=== PATIENT | male | born 1990 | race Hispanic/Latino ===

== ENCOUNTER 2022-07-28 20:59 | Inpatient (IN) | payer OTHER ==
[~2022-07-28] VITALS: Ht 182.9 cm; Wt 105.2 kg
[2022-07-28] MEDS ORDERED: CHARCOAL ACTIVATED LIQUID 25GM/120ML BTL PO ONE (21:05)
[2022-07-28 21:28] LABS: BASO % 0.2 % (0.0-1.0); EOS % 0.5 % (0.0-3.0); HEMOGLOBIN 14.6 g/dl (13.5-17.5); LYMPH # 1.1 10^3/uL (1.5-5.0); MEAN CORPUSCULAR HEMOGLOBIN 31.8 pg (27.0-33.0); MEAN CORPUSCULAR HGB CONC 34.8 g/dl (32.0-36.5); MEAN CORPUSCULAR VOLUME 91.5 fl (80.0-96.0); MONO # 0.5 10^3/uL (0.0-0.8); MONO % 9.4 % (2.0-8.0); NEUTROPHILS % 70.5 % (36.0-66.0); PLATELET COUNT, AUTOMATED 232 10^3/uL (150-450); RED BLOOD COUNT 4.59 10^6/uL (4.30-6.10); WHITE BLOOD COUNT 5.6 10^3/uL (4.0-10.0)
[2022-07-28] MEDS ORDERED: NS 1,000 ML IV ONE ×2 (21:35→22:00)
[2022-07-28 21:53] LABS: ETHYL ALCOHOL (ETHANOL) 0.013 % (0.000-0.010)
[2022-07-28 21:54] LABS: SALICYLATE LEVEL < 3.0 MG/DL (<30)
[2022-07-28 21:55] LABS: ACETAMINOPHEN LEVEL < 2.0 UG/ML (10.0-20.0); ALBUMIN 3.9 G/DL (3.2-5.2); ALKALINE PHOSPHATASE 66 U/L (46-116); ALT/SGPT 19 U/L (7.0-40); AST/SGOT 21 U/L (<34); BILIRUBIN,DIRECT 0.2 MG/DL (<0.4); BILIRUBIN,TOTAL 0.7 MG/DL (0.3-1.2); BLOOD UREA NITROGEN 14 MG/DL (9-23); CALCIUM LEVEL 8.6 MG/DL (8.5-10.1); CARBON DIOXIDE LEVEL 28 MMOL/L (20-31); CHLORIDE LEVEL 106 MMOL/L (98-107); CPK CREATINE PHOSPHOKINASE 142 U/L (46-171); CREATININE FOR GFR 1.04 MG/DL (0.70-1.30); GLOMERULAR FILTRATION RATE > 60.0 (>60); GLUCOSE, FASTING 120 MG/DL (60-100); POTASSIUM SERUM 4.3 MMOL/L (3.5-5.1); SODIUM LEVEL 141 MMOL/L (136-145); TOTAL PROTEIN 6.8 G/DL (5.7-8.2)
[2022-07-28 21:57] LABS: THYROID STIMULATING HORMONE 1.525 uIU/ML (0.55-4.78)
[2022-07-28 22:01] LABS: RSV AMPLIFICATION NEGATIVE (NEGATIVE)
[2022-07-28 22:21] LABS: MAGNESIUM LEVEL 1.9 MG/DL (1.8-2.4)
[2022-07-28] MEDS: NOREPINEPHRINE 4MG IN D5 250ML 4 MG in IV 1 EA IV SCH ×4 (22:48)
[2022-07-28] MEDS ORDERED: NS 1,000 ML IV SCH ×2 (23:10→23:45)
[2022-07-28] MEDS ORDERED: ALBUTEROL SULFATE 2.5MG/0.5ML INH NEB SOLN NEB PRN (23:45)
[2022-07-29] VITALS (30 sets, daily range): BP systolic 86–112; BP diastolic 46–64; O2SAT 95–97
[2022-07-29 00:31] LABS: AMPHETAMINES LEVEL URINE NEGATIVE (NEGATIVE); BARBITURATES URINE NEGATIVE (NEGATIVE); BENZODIAZEPINES URINE NEGATIVE (NEGATIVE); CANNABINOIDS URINE NEGATIVE (NEGATIVE); COCAINE METABOLITE URINE NEGATIVE (NEGATIVE); METHADONE URINE NEGATIVE (NEGATIVE); OPIATES URINE NEGATIVE (NEGATIVE); PHENCYCLIDINE URINE NEGATIVE (NEGATIVE)
[2022-07-29] MEDS: NOREPINEPHRINE 4MG IN D5 250ML 4 MG in IV 1 EA IV SCH ×4 (00:47→09:20)
[2022-07-29 04:59] LABS: ALBUMIN 3.3 G/DL (3.2-5.2); ALKALINE PHOSPHATASE 58 U/L (46-116); ALT/SGPT 27 U/L (7.0-40); AST/SGOT 16 U/L (<34); BILIRUBIN,TOTAL 0.8 MG/DL (0.3-1.2); BLOOD UREA NITROGEN 11 MG/DL (9-23); CALCIUM LEVEL 8.2 MG/DL (8.5-10.1); CARBON DIOXIDE LEVEL 29 MMOL/L (20-31); CHLORIDE LEVEL 109 MMOL/L (98-107); CREATININE FOR GFR 0.98 MG/DL (0.70-1.30); GLOMERULAR FILTRATION RATE > 60.0 (>60); GLUCOSE, FASTING 112 MG/DL (60-100); MAGNESIUM LEVEL 1.8 MG/DL (1.8-2.4); PHOSPHORUS LEVEL 4.4 MG/DL (2.5-4.9); POTASSIUM SERUM 4.2 MMOL/L (3.5-5.1); SODIUM LEVEL 143 MMOL/L (136-145); TOTAL PROTEIN 5.9 G/DL (5.7-8.2)
[2022-07-29] MEDS: PANTOPRAZOLE 40MG VIAL IV SCH (08:03)
[2022-07-29] MEDS: HEPARIN SOD (PORCINE) 5000UNITS/ML 1ML VIAL/SYRINGE SC SCH ×2 (09:06→15:29)
[2022-07-29] MEDS ORDERED: DULO60CA35 PO (10:26)
[2022-07-29] MEDS ORDERED: TRAZ-257 PO (10:26)
[2022-07-29] MEDS ORDERED: PRAZ5CAP22 PO (10:26)
[2022-07-29] MEDS ORDERED: BUSP10TA PO (10:26)
[2022-07-29] MEDS ORDERED: HYDR50TA70 PO ×2 (10:26)
[2022-07-29] MEDS ORDERED: CLON0.2T PO (10:26)
[2022-07-29] MEDS ORDERED: NS 1,000 ML IV SCH (10:35)
[2022-07-29] MEDS ORDERED: LR 1,000 ML IV SCH (15:05)
[2022-07-29] MEDS ORDERED: NEOSPORIN OINT 0.9 GM PKT TOP ONE (16:15)
[2022-07-30] VITALS (25 sets, daily range): BP systolic 92–135; BP diastolic 53–64; O2SAT 88–99
[2022-07-30] MEDS: PANTOPRAZOLE 40MG VIAL IV SCH (09:13)
[2022-07-30] MEDS: ENOXAPARIN 40MG/0.4ML SYRINGE (J1650 PER 10MG) SC SCH (09:13)
[2022-07-30] MEDS: LR 1,000 ML IV SCH (12:30)
[2022-07-31] VITALS (12 sets, daily range): BP systolic 129–146; BP diastolic 63–79; O2SAT 94–97
[2022-07-31] MEDS: LR 1,000 ML IV SCH ×2 (01:00→12:15)
[2022-07-31 08:32] LABS: HEMATOCRIT 35.3 % (42.0-52.0); HEMOGLOBIN 12.5 g/dl (13.5-17.5); MEAN CORPUSCULAR HEMOGLOBIN 32.4 pg (27.0-33.0); MEAN CORPUSCULAR HGB CONC 35.4 g/dl (32.0-36.5); MEAN CORPUSCULAR VOLUME 91.5 fl (80.0-96.0); PLATELET COUNT, AUTOMATED 138 10^3/uL (150-450); RED BLOOD COUNT 3.86 10^6/uL (4.30-6.10); WHITE BLOOD COUNT 5.1 10^3/uL (4.0-10.0)
[2022-07-31] MEDS: PANTOPRAZOLE 40MG VIAL IV SCH (08:40)
[2022-07-31 09:16] LABS: BLOOD UREA NITROGEN 12 MG/DL (9-23); CALCIUM LEVEL 7.9 MG/DL (8.5-10.1); CARBON DIOXIDE LEVEL 26 MMOL/L (20-31); CHLORIDE LEVEL 107 MMOL/L (98-107); GLOMERULAR FILTRATION RATE > 60.0 (>60); GLUCOSE, FASTING 100 MG/DL (60-100); POTASSIUM SERUM 3.7 MMOL/L (3.5-5.1); SODIUM LEVEL 141 MMOL/L (136-145)
[2022-07-31] MEDS: ENOXAPARIN 40MG/0.4ML SYRINGE (J1650 PER 10MG) SC SCH (11:51)
== END 2022-07-31 14:31 | DRG 917 ==
LOC: EDBD 20:59 → M ED 20:59 → M ED INP 23:18 → M ICU 07-29 00:33 → M PCU 07-29 17:08
PROVIDERS: ADMIT Internal Medicine; ATTEND Internal Medicine
DX: T43.212A Poisoning by selective serotonin and norepinephrine reuptake inhibitors, intentional self-harm, initial encounter (principal); G92.9 Unspecified toxic encephalopathy; R45.851 Suicidal ideations; R57.9 Shock, unspecified; F41.9 Anxiety disorder, unspecified; F43.10 Post-traumatic stress disorder, unspecified; T43.592A Poisoning by other antipsychotics and neuroleptics, intentional self-harm, initial encounter; I95.9 Hypotension, unspecified; R94.31 Abnormal electrocardiogram [ECG] [EKG]; F32.A Depression, unspecified; Z79.899 Other long term (current) drug therapy; Z63.5 Disruption of family by separation and divorce

== ENCOUNTER 2022-07-31 12:27 | Inpatient (IN) | payer OTHER ==
[~2022-07-31] VITALS: Ht 182.9 cm; Wt 104.1 kg
[~2022-07-31 12:27] MED LIST: BUSP10TA PO; CLON0.2T PO; DULO60CA35 PO; HYDR50TA70 PO; PRAZ5CAP22 PO; TRAZ-257 PO
[2022-07-31] MEDS ORDERED: MOM 30ML SUSPENSION UDC PO PRN (13:50)
[2022-07-31] MEDS ORDERED: ALBUTEROL 90 MCG/ACT 8GM HFA INHALER INH PRN (13:50)
[2022-07-31] MEDS ORDERED: MAALOX 30 ML SUSP *UDC PO PRN (13:50)
[2022-07-31] MEDS ORDERED: HOME MED LIST COMPLETE! XX SCH (14:55)
[2022-07-31 14:56] VITALS: BP 136/79
[2022-07-31] MEDS: DULoxetine 20MG CAP (CYMBALTA) PO SCH (17:40)
[2022-07-31] MEDS ORDERED: PRAZOSIN 1 MG CAP PO SCH (21:00)
[2022-08-01 06:16] VITALS: BP 146/98
[2022-08-01 09:16] VITALS: BP 146/98
[2022-08-01] MEDS: PANTOPRAZOLE 40MG TAB (PROTONIX) PO SCH (09:20)
[2022-08-01] MEDS: DULoxetine 20MG CAP (CYMBALTA) PO SCH (09:20)
[2022-08-01] MEDS: busPIRone 10 MG TAB PO SCH ×2 (12:20→22:39)
[2022-08-01] MEDS ORDERED: chlorproMAZINE INJ 50MG/2ML AMP IM STA (16:24)
[2022-08-01 16:30] VITALS: BP 154/75
[2022-08-01 16:45] VITALS: BP 148/78
[2022-08-01 17:00] VITALS: BP 160/79
[2022-08-01 18:54] VITALS: BP 142/82
[2022-08-01] MEDS: PRAZOSIN 1 MG CAP PO SCH (22:39)
[2022-08-01] MEDS: QUEtiapine FUMARATE 25 MG TAB PO SCH (22:39)
[2022-08-02 06:35] VITALS: BP 148/83
[2022-08-02] MEDS: DULoxetine 30MG CAPSULE (CYMBALTA) PO SCH (08:38)
[2022-08-02] MEDS: busPIRone 10 MG TAB PO SCH ×3 (08:38→21:53)
[2022-08-02] MEDS: PANTOPRAZOLE 40MG TAB (PROTONIX) PO SCH (08:38)
[2022-08-02] MEDS: cloNIDine 0.2 MG TAB PO SCH ×2 (14:34→21:53)
[2022-08-02 17:21] VITALS: BP 123/76
[2022-08-02] MEDS: QUEtiapine FUMARATE 25 MG TAB PO SCH (21:53)
[2022-08-02] MEDS: PRAZOSIN 1 MG CAP PO SCH (21:54)
[2022-08-03 06:54] VITALS: BP 107/62
[2022-08-03 08:29] VITALS: BP 138/76
[2022-08-03] MEDS: cloNIDine 0.2 MG TAB PO SCH ×2 (08:31→21:46)
[2022-08-03] MEDS: DULoxetine 30MG CAPSULE (CYMBALTA) PO SCH (08:31)
[2022-08-03] MEDS: PANTOPRAZOLE 40MG TAB (PROTONIX) PO SCH (08:32)
[2022-08-03] MEDS: busPIRone 10 MG TAB PO SCH ×3 (08:32→21:46)
[2022-08-03 15:50] VITALS: BP 148/86
[2022-08-03] MEDS: QUEtiapine FUMARATE 25 MG TAB PO SCH (21:46)
[2022-08-03] MEDS: PRAZOSIN 1 MG CAP PO SCH (21:47)
[2022-08-04 06:56] VITALS: BP 123/67
[2022-08-04] MEDS: PANTOPRAZOLE 40MG TAB (PROTONIX) PO SCH (08:11)
[2022-08-04] MEDS: DULoxetine 30MG CAPSULE (CYMBALTA) PO SCH (08:12)
[2022-08-04] MEDS: cloNIDine 0.2 MG TAB PO SCH ×2 (08:12→19:57)
[2022-08-04] MEDS: busPIRone 10 MG TAB PO SCH ×3 (08:12→19:57)
[2022-08-04 17:40] VITALS: BP 126/70
[2022-08-04] MEDS: PRAZOSIN 1 MG CAP PO SCH (19:56)
[2022-08-04] MEDS: QUEtiapine FUMARATE 25 MG TAB PO SCH (19:57)
[2022-08-05 06:03] VITALS: BP 114/69
[2022-08-05 09:56] VITALS: BP 138/88
[2022-08-05] MEDS: DULoxetine 30MG CAPSULE (CYMBALTA) PO SCH (09:56)
[2022-08-05] MEDS: busPIRone 10 MG TAB PO SCH ×3 (09:56→20:02)
[2022-08-05] MEDS: cloNIDine 0.2 MG TAB PO SCH ×2 (09:57→20:03)
[2022-08-05] MEDS: PANTOPRAZOLE 40MG TAB (PROTONIX) PO SCH (09:57)
[2022-08-05 18:00] VITALS: BP 135/82
[2022-08-05] MEDS: QUEtiapine FUMARATE 25 MG TAB PO SCH (20:02)
[2022-08-05] MEDS: PRAZOSIN 1 MG CAP PO SCH (20:03)
[2022-08-06 06:40] VITALS: BP 145/76
[2022-08-06 07:40] VITALS: BP 150/90
[2022-08-06] MEDS: DULoxetine 30MG CAPSULE (CYMBALTA) PO SCH (07:52)
[2022-08-06] MEDS: busPIRone 10 MG TAB PO SCH ×3 (07:52→20:37)
[2022-08-06] MEDS: PANTOPRAZOLE 40MG TAB (PROTONIX) PO SCH (07:53)
[2022-08-06] MEDS: cloNIDine 0.2 MG TAB PO SCH ×2 (07:53→20:37)
[2022-08-06 17:35] VITALS: BP 143/85
[2022-08-06] MEDS: QUEtiapine FUMARATE 25 MG TAB PO SCH (20:37)
[2022-08-06] MEDS: PRAZOSIN 1 MG CAP PO SCH (20:38)
[2022-08-07 06:58] VITALS: BP 142/66
[2022-08-07] MEDS: DULoxetine 30MG CAPSULE (CYMBALTA) PO SCH (07:55)
[2022-08-07] MEDS: PANTOPRAZOLE 40MG TAB (PROTONIX) PO SCH (07:56)
[2022-08-07] MEDS: cloNIDine 0.2 MG TAB PO SCH ×2 (07:56→20:14)
[2022-08-07] MEDS: busPIRone 10 MG TAB PO SCH ×3 (07:57→20:14)
[2022-08-07 16:15] VITALS: BP 145/84
[2022-08-07] MEDS: PRAZOSIN 1 MG CAP PO SCH (20:14)
[2022-08-07] MEDS: QUEtiapine FUMARATE 25 MG TAB PO SCH (20:14)
[2022-08-08 07:03] VITALS: BP 129/68
[2022-08-08] MEDS: busPIRone 10 MG TAB PO SCH ×3 (08:33→20:44)
[2022-08-08] MEDS: cloNIDine 0.2 MG TAB PO SCH ×2 (08:33→20:44)
[2022-08-08] MEDS: DULoxetine 30MG CAPSULE (CYMBALTA) PO SCH (08:34)
[2022-08-08] MEDS: PANTOPRAZOLE 40MG TAB (PROTONIX) PO SCH (08:34)
[2022-08-08 16:29] VITALS: BP 146/80
[2022-08-08] MEDS: QUEtiapine FUMARATE 25 MG TAB PO SCH (20:44)
[2022-08-08] MEDS: PRAZOSIN 1 MG CAP PO SCH (20:44)
[2022-08-09 06:25] VITALS: BP 147/82
[2022-08-09] MEDS: cloNIDine 0.2 MG TAB PO SCH ×2 (08:02→20:54)
[2022-08-09] MEDS: busPIRone 10 MG TAB PO SCH ×3 (08:02→20:54)
[2022-08-09] MEDS: PANTOPRAZOLE 40MG TAB (PROTONIX) PO SCH (08:03)
[2022-08-09] MEDS: DULoxetine 30MG CAPSULE (CYMBALTA) PO SCH (08:03)
[2022-08-09] MEDS: OLANZapine ORAL DISINTEGRATING TAB 5MG PO PRN (11:20)
[2022-08-09 16:14] VITALS: BP 135/70
[2022-08-09] MEDS: QUEtiapine FUMARATE 25 MG TAB PO SCH (20:54)
[2022-08-09] MEDS: PRAZOSIN 1 MG CAP PO SCH (20:54)
[2022-08-10 06:10] VITALS: BP 137/78
[2022-08-10 08:18] VITALS: BP 142/78
[2022-08-10] MEDS: DULoxetine 30MG CAPSULE (CYMBALTA) PO SCH (08:18)
[2022-08-10] MEDS: busPIRone 10 MG TAB PO SCH ×3 (08:19→20:12)
[2022-08-10] MEDS: PANTOPRAZOLE 40MG TAB (PROTONIX) PO SCH (08:19)
[2022-08-10] MEDS: cloNIDine 0.2 MG TAB PO SCH ×2 (08:19→20:12)
[2022-08-10] MEDS: OLANZapine ORAL DISINTEGRATING TAB 5MG PO PRN (17:54)
[2022-08-10 17:58] VITALS: BP 146/84
[2022-08-10] MEDS: QUEtiapine FUMARATE 25 MG TAB PO SCH (20:12)
[2022-08-10] MEDS: PRAZOSIN 1 MG CAP PO SCH (20:12)
[2022-08-11 06:42] VITALS: BP 144/87
[2022-08-11] MEDS: cloNIDine 0.2 MG TAB PO SCH ×2 (08:27→20:10)
[2022-08-11] MEDS: DULoxetine 30MG CAPSULE (CYMBALTA) PO SCH (08:27)
[2022-08-11] MEDS: busPIRone 10 MG TAB PO SCH ×4 (08:27→20:10)
[2022-08-11] MEDS: PANTOPRAZOLE 40MG TAB (PROTONIX) PO SCH (08:27)
[2022-08-11] MEDS ORDERED: LORazepam 2 MG/ML 1ML VIAL IM PRN (09:35)
[2022-08-11] MEDS: OLANZapine ORAL DISINTEGRATING TAB 5MG PO PRN (10:50)
[2022-08-11] MEDS: IBUPROFEN 400MG TAB PO PRN (10:52)
[2022-08-11] MEDS: QUEtiapine FUMARATE 25 MG TAB PO SCH (20:10)
[2022-08-11] MEDS: PRAZOSIN 1 MG CAP PO SCH (20:10)
[2022-08-11] MEDS: LORazepam 2 MG TAB PO PRN (20:11)
[2022-08-12 06:25] VITALS: BP 132/64
[2022-08-12] MEDS: busPIRone 10 MG TAB PO SCH ×3 (08:08→20:07)
[2022-08-12] MEDS: DULoxetine 20MG CAP (CYMBALTA) PO SCH (08:08)
[2022-08-12] MEDS: PANTOPRAZOLE 40MG TAB (PROTONIX) PO SCH (08:08)
[2022-08-12] MEDS: cloNIDine 0.2 MG TAB PO SCH ×2 (08:08→20:11)
[2022-08-12] MEDS: IBUPROFEN 400MG TAB PO PRN (08:09)
[2022-08-12 16:11] VITALS: BP 155/70
[2022-08-12] MEDS: PRAZOSIN 1 MG CAP PO SCH (20:11)
[2022-08-12] MEDS: QUEtiapine FUMARATE 25 MG TAB PO SCH (20:11)
[2022-08-12] MEDS: LORazepam 2 MG TAB PO PRN (20:12)
[2022-08-13 06:14] VITALS: BP 140/77
[2022-08-13] MEDS: DULoxetine 20MG CAP (CYMBALTA) PO SCH (07:57)
[2022-08-13] MEDS: busPIRone 10 MG TAB PO SCH ×3 (07:59→20:02)
[2022-08-13] MEDS: cloNIDine 0.2 MG TAB PO SCH ×2 (07:59→20:02)
[2022-08-13] MEDS: PANTOPRAZOLE 40MG TAB (PROTONIX) PO SCH (07:59)
[2022-08-13] MEDS: LORazepam 2 MG TAB PO PRN ×2 (12:49→20:05)
[2022-08-13 15:45] VITALS: BP 130/78
[2022-08-13] MEDS: PRAZOSIN 1 MG CAP PO SCH (20:02)
[2022-08-13] MEDS: QUEtiapine FUMARATE 25 MG TAB PO SCH (20:02)
[2022-08-14 06:16] VITALS: BP 137/78
[2022-08-14] MEDS: LORazepam 2 MG TAB PO PRN ×3 (06:27→20:06)
[2022-08-14 07:56] VITALS: BP 127/77
[2022-08-14] MEDS: DULoxetine 20MG CAP (CYMBALTA) PO SCH (08:00)
[2022-08-14] MEDS: busPIRone 10 MG TAB PO SCH ×3 (08:01→20:07)
[2022-08-14] MEDS: cloNIDine 0.2 MG TAB PO SCH ×2 (08:01→20:07)
[2022-08-14] MEDS: PANTOPRAZOLE 40MG TAB (PROTONIX) PO SCH (08:02)
[2022-08-14 18:53] VITALS: BP 122/67
[2022-08-14] MEDS: PRAZOSIN 1 MG CAP PO SCH (20:05)
[2022-08-14] MEDS: QUEtiapine FUMARATE 25 MG TAB PO SCH (20:07)
[2022-08-15 06:21] VITALS: BP 107/65
[2022-08-15] MEDS: PANTOPRAZOLE 40MG TAB (PROTONIX) PO SCH (09:08)
[2022-08-15] MEDS: busPIRone 10 MG TAB PO SCH ×3 (09:08→21:06)
[2022-08-15] MEDS: cloNIDine 0.2 MG TAB PO SCH ×2 (09:09→21:06)
[2022-08-15] MEDS: DULoxetine 20MG CAP (CYMBALTA) PO SCH (09:09)
[2022-08-15] MEDS: LORazepam 2 MG TAB PO PRN ×2 (12:19→19:10)
[2022-08-15 17:15] VITALS: BP 119/69
[2022-08-15] MEDS: PRAZOSIN 1 MG CAP PO SCH (21:06)
[2022-08-15] MEDS: QUEtiapine FUMARATE 25 MG TAB PO SCH (21:06)
[2022-08-16 06:00] VITALS: BP 115/64
[2022-08-16 08:06] VITALS: BP 117/63
[2022-08-16] MEDS: busPIRone 10 MG TAB PO SCH ×3 (08:07→21:04)
[2022-08-16] MEDS: PANTOPRAZOLE 40MG TAB (PROTONIX) PO SCH (08:07)
[2022-08-16] MEDS: DULoxetine 20MG CAP (CYMBALTA) PO SCH (08:08)
[2022-08-16] MEDS: cloNIDine 0.2 MG TAB PO SCH ×2 (08:09→21:04)
[2022-08-16] MEDS: LORazepam 2 MG TAB PO PRN (09:20)
[2022-08-16] MEDS ORDERED: LORazepam 2 MG TAB PO STA (17:03)
[2022-08-16 18:54] VITALS: BP 148/86
[2022-08-16] MEDS: QUEtiapine FUMARATE 25 MG TAB PO SCH (21:03)
[2022-08-16] MEDS: PRAZOSIN 1 MG CAP PO SCH (21:04)
[2022-08-17] MEDS: LORazepam 2 MG TAB PO PRN ×2 (06:48→20:10)
[2022-08-17 07:11] VITALS: BP 138/77
[2022-08-17] MEDS: PANTOPRAZOLE 40MG TAB (PROTONIX) PO SCH (08:01)
[2022-08-17] MEDS: busPIRone 10 MG TAB PO SCH ×3 (08:02→20:10)
[2022-08-17] MEDS: DULoxetine 30MG CAPSULE (CYMBALTA) PO SCH (08:02)
[2022-08-17] MEDS: cloNIDine 0.2 MG TAB PO SCH ×2 (08:04→20:10)
[2022-08-17 18:28] VITALS: BP 140/86
[2022-08-17] MEDS: QUEtiapine FUMARATE 25 MG TAB PO SCH (20:10)
[2022-08-17] MEDS: PRAZOSIN 1 MG CAP PO SCH (20:10)
[2022-08-18 06:23] VITALS: BP 131/68
[2022-08-18] MEDS: busPIRone 10 MG TAB PO SCH ×3 (07:55→20:48)
[2022-08-18] MEDS: PANTOPRAZOLE 40MG TAB (PROTONIX) PO SCH (07:55)
[2022-08-18] MEDS: DULoxetine 30MG CAPSULE (CYMBALTA) PO SCH (07:56)
[2022-08-18] MEDS: cloNIDine 0.2 MG TAB PO SCH ×2 (07:56→20:48)
[2022-08-18] MEDS: LORazepam 2 MG TAB PO PRN (08:40)
[2022-08-18 18:07] VITALS: BP 128/79
[2022-08-18] MEDS ORDERED: IBUPROFEN 800 MG TAB PO ONE (18:20)
[2022-08-18] MEDS: PRAZOSIN 1 MG CAP PO SCH (20:47)
[2022-08-18] MEDS: QUEtiapine FUMARATE 25 MG TAB PO SCH (20:48)
[2022-08-19 05:58] VITALS: BP 152/89
[2022-08-19] MEDS: busPIRone 10 MG TAB PO SCH ×3 (08:02→21:42)
[2022-08-19] MEDS: DULoxetine 30MG CAPSULE (CYMBALTA) PO SCH (08:03)
[2022-08-19] MEDS: PANTOPRAZOLE 40MG TAB (PROTONIX) PO SCH (08:03)
[2022-08-19] MEDS: cloNIDine 0.2 MG TAB PO SCH ×2 (08:03→21:41)
[2022-08-19] MEDS: LORazepam 2 MG TAB PO PRN (13:30)
[2022-08-19 18:28] VITALS: BP 127/87
[2022-08-19] MEDS: QUEtiapine FUMARATE 25 MG TAB PO SCH (21:41)
[2022-08-19] MEDS: PRAZOSIN 1 MG CAP PO SCH (21:41)
[2022-08-20 05:54] VITALS: BP 107/71
[2022-08-20] MEDS: busPIRone 10 MG TAB PO SCH ×3 (08:50→22:33)
[2022-08-20] MEDS: cloNIDine 0.2 MG TAB PO SCH ×2 (08:50→22:33)
[2022-08-20] MEDS: PANTOPRAZOLE 40MG TAB (PROTONIX) PO SCH (08:50)
[2022-08-20] MEDS: DULoxetine 30MG CAPSULE (CYMBALTA) PO SCH (08:50)
[2022-08-20 18:44] VITALS: BP 148/71
[2022-08-20] MEDS: QUEtiapine FUMARATE 25 MG TAB PO SCH (22:33)
[2022-08-20] MEDS: LORazepam 2 MG TAB PO PRN (22:33)
[2022-08-20] MEDS: PRAZOSIN 1 MG CAP PO SCH (22:34)
[2022-08-21 06:04] VITALS: BP 118/80
[2022-08-21] MEDS: PANTOPRAZOLE 40MG TAB (PROTONIX) PO SCH (08:27)
[2022-08-21] MEDS: busPIRone 10 MG TAB PO SCH ×3 (08:27→20:18)
[2022-08-21] MEDS: cloNIDine 0.2 MG TAB PO SCH ×2 (08:28→20:18)
[2022-08-21] MEDS: DULoxetine 30MG CAPSULE (CYMBALTA) PO SCH (08:28)
[2022-08-21] MEDS: LORazepam 2 MG TAB PO PRN ×2 (08:28→20:13)
[2022-08-21] MEDS ORDERED: CLON0.2T PO (09:35)
[2022-08-21] MEDS ORDERED: BUSP10TA PO (09:35)
[2022-08-21] MEDS ORDERED: DULO60CA35 PO (09:35)
[2022-08-21] MEDS ORDERED: ABIL1TAB11 PO (09:35)
[2022-08-21] MEDS ORDERED: CHLOR25TA PO (09:35)
[2022-08-21] MEDS ORDERED: QUET1TAB17 PO (09:35)
[2022-08-21] MEDS ORDERED: MINI1CAP PO (09:35)
[2022-08-21] MEDS ORDERED: PANT40TA29 PO (09:35)
[2022-08-21 16:11] VITALS: BP 137/72
[2022-08-21] MEDS: QUEtiapine FUMARATE 25 MG TAB PO SCH (20:11)
[2022-08-21] MEDS: PRAZOSIN 1 MG CAP PO SCH (20:18)
[2022-08-22] MEDS: LORazepam 2 MG TAB PO PRN ×2 (06:01→11:44)
[2022-08-22 06:37] VITALS: BP 133/80
[2022-08-22] MEDS: cloNIDine 0.2 MG TAB PO SCH ×2 (08:47→21:00)
[2022-08-22] MEDS: busPIRone 10 MG TAB PO SCH ×3 (08:47→21:00)
[2022-08-22] MEDS: DULoxetine 30MG CAPSULE (CYMBALTA) PO SCH (08:48)
[2022-08-22] MEDS: PANTOPRAZOLE 40MG TAB (PROTONIX) PO SCH (08:48)
[2022-08-22] MEDS ORDERED: LORazepam 2 MG TAB PO STA (11:45)
[2022-08-22] MEDS: PRAZOSIN 1 MG CAP PO SCH (21:00)
[2022-08-22] MEDS: QUEtiapine FUMARATE 25 MG TAB PO SCH (21:00)
[2022-08-23] MEDS: IBUPROFEN 400MG TAB PO PRN (04:24)
[2022-08-23] MEDS: LORazepam 2 MG TAB PO PRN ×3 (04:25→20:04)
[2022-08-23 06:45] VITALS: BP 159/101
[2022-08-23] MEDS: DULoxetine 30MG CAPSULE (CYMBALTA) PO SCH (07:48)
[2022-08-23] MEDS: cloNIDine 0.2 MG TAB PO SCH ×2 (07:48→20:04)
[2022-08-23] MEDS: busPIRone 10 MG TAB PO SCH ×3 (07:48→20:04)
[2022-08-23] MEDS: PANTOPRAZOLE 40MG TAB (PROTONIX) PO SCH (07:48)
[2022-08-23 16:20] VITALS: BP 112/59
[2022-08-23] MEDS: QUEtiapine FUMARATE 25 MG TAB PO SCH (20:04)
[2022-08-23] MEDS: PRAZOSIN 1 MG CAP PO SCH (20:05)
[2022-08-24 05:42] VITALS: BP 122/72
[2022-08-24 08:04] VITALS: BP 120/79
[2022-08-24] MEDS: cloNIDine 0.2 MG TAB PO SCH ×2 (08:05→19:53)
[2022-08-24] MEDS: LORazepam 2 MG TAB PO PRN ×2 (08:05→16:07)
[2022-08-24] MEDS: busPIRone 10 MG TAB PO SCH ×3 (08:05→19:53)
[2022-08-24] MEDS: PANTOPRAZOLE 40MG TAB (PROTONIX) PO SCH (08:05)
[2022-08-24] MEDS: DULoxetine 30MG CAPSULE (CYMBALTA) PO SCH (08:06)
[2022-08-24 18:09] VITALS: BP 118/68
[2022-08-24] MEDS: QUEtiapine FUMARATE 25 MG TAB PO SCH (19:52)
[2022-08-24] MEDS: PRAZOSIN 1 MG CAP PO SCH (19:52)
[2022-08-25] MEDS: LORazepam 2 MG TAB PO PRN ×2 (03:19→18:35)
[2022-08-25 07:09] VITALS: BP 134/74
[2022-08-25 08:05] VITALS: BP 120/68
[2022-08-25] MEDS: DULoxetine 30MG CAPSULE (CYMBALTA) PO SCH (08:06)
[2022-08-25] MEDS: PANTOPRAZOLE 40MG TAB (PROTONIX) PO SCH (08:06)
[2022-08-25] MEDS: busPIRone 10 MG TAB PO SCH ×3 (08:06→20:02)
[2022-08-25] MEDS: cloNIDine 0.2 MG TAB PO SCH ×2 (08:06→20:02)
[2022-08-25 15:50] VITALS: BP 133/75
[2022-08-25] MEDS: PRAZOSIN 1 MG CAP PO SCH (20:01)
[2022-08-25] MEDS: QUEtiapine FUMARATE 25 MG TAB PO SCH (20:02)
[2022-08-26 06:30] VITALS: BP 125/61
[2022-08-26] MEDS: LORazepam 2 MG TAB PO PRN ×2 (08:02→17:26)
[2022-08-26] MEDS: cloNIDine 0.2 MG TAB PO SCH ×2 (08:04→20:02)
[2022-08-26] MEDS: PANTOPRAZOLE 40MG TAB (PROTONIX) PO SCH (08:04)
[2022-08-26] MEDS: busPIRone 10 MG TAB PO SCH ×3 (08:04→20:02)
[2022-08-26] MEDS: DULoxetine 30MG CAPSULE (CYMBALTA) PO SCH (08:04)
[2022-08-26 16:25] VITALS: BP 131/72
[2022-08-26] MEDS: PRAZOSIN 1 MG CAP PO SCH (20:02)
[2022-08-26] MEDS: QUEtiapine FUMARATE 25 MG TAB PO SCH (20:02)
[2022-08-27 06:36] VITALS: BP 150/82
[2022-08-27] MEDS: cloNIDine 0.2 MG TAB PO SCH ×2 (07:45→19:54)
[2022-08-27] MEDS: DULoxetine 30MG CAPSULE (CYMBALTA) PO SCH (07:45)
[2022-08-27] MEDS: PANTOPRAZOLE 40MG TAB (PROTONIX) PO SCH (07:46)
[2022-08-27] MEDS: busPIRone 10 MG TAB PO SCH ×3 (08:52→19:54)
[2022-08-27] MEDS: LORazepam 2 MG TAB PO PRN (12:36)
[2022-08-27] MEDS: OLANZapine ORAL DISINTEGRATING TAB 5MG PO PRN (15:38)
[2022-08-27 16:49] VITALS: BP 115/56
[2022-08-27] MEDS: QUEtiapine FUMARATE 25 MG TAB PO SCH (19:53)
[2022-08-27] MEDS: PRAZOSIN 1 MG CAP PO SCH (19:54)
[2022-08-28 06:59] VITALS: BP 131/72
[2022-08-28] MEDS: PANTOPRAZOLE 40MG TAB (PROTONIX) PO SCH (08:27)
[2022-08-28] MEDS: busPIRone 10 MG TAB PO SCH ×3 (08:27→20:03)
[2022-08-28] MEDS: cloNIDine 0.2 MG TAB PO SCH ×2 (08:27→20:03)
[2022-08-28] MEDS: DULoxetine 30MG CAPSULE (CYMBALTA) PO SCH (08:27)
[2022-08-28] MEDS: LORazepam 2 MG TAB PO PRN ×2 (10:39→20:53)
[2022-08-28 18:00] VITALS: BP 135/72
[2022-08-28] MEDS: PRAZOSIN 1 MG CAP PO SCH (20:02)
[2022-08-28] MEDS: QUEtiapine FUMARATE 25 MG TAB PO SCH (20:04)
[2022-08-29 06:16] VITALS: BP 152/76
[2022-08-29] MEDS: cloNIDine 0.2 MG TAB PO SCH ×2 (08:00→20:03)
[2022-08-29] MEDS: DULoxetine 30MG CAPSULE (CYMBALTA) PO SCH (08:01)
[2022-08-29] MEDS: PANTOPRAZOLE 40MG TAB (PROTONIX) PO SCH (08:01)
[2022-08-29] MEDS: busPIRone 10 MG TAB PO SCH ×3 (08:30→20:06)
[2022-08-29 16:28] VITALS: BP 142/75
[2022-08-29] MEDS: LORazepam 2 MG TAB PO PRN (20:06)
[2022-08-29] MEDS: QUEtiapine FUMARATE 25 MG TAB PO SCH (20:06)
[2022-08-29] MEDS ORDERED: PRAZOSIN 1 MG CAP PO SCH (21:00)
[2022-08-30] MEDS: LORazepam 2 MG TAB PO PRN ×2 (03:31→21:14)
[2022-08-30 06:14] VITALS: BP 145/85
[2022-08-30] MEDS: busPIRone 10 MG TAB PO SCH ×3 (08:15→20:13)
[2022-08-30] MEDS: DULoxetine 30MG CAPSULE (CYMBALTA) PO SCH (08:15)
[2022-08-30] MEDS: PANTOPRAZOLE 40MG TAB (PROTONIX) PO SCH (08:15)
[2022-08-30] MEDS: cloNIDine 0.2 MG TAB PO SCH ×2 (08:15→20:13)
[2022-08-30] MEDS ORDERED: ARIPiprazole MONOHYDRATE 400 MG INJ (ABILIFY)(FREE PSY INPT ONLY) IM ONE (12:00)
[2022-08-30 16:16] VITALS: BP 133/85
[2022-08-30] MEDS: QUEtiapine FUMARATE 25 MG TAB PO SCH (20:13)
[2022-08-30] MEDS ORDERED: PRAZOSIN 1 MG CAP PO SCH (21:00)
[2022-08-31 06:42] VITALS: BP 144/83
[2022-08-31] MEDS: LORazepam 2 MG TAB PO PRN ×2 (08:36→14:28)
[2022-08-31] MEDS: busPIRone 10 MG TAB PO SCH (08:36)
[2022-08-31] MEDS: DULoxetine 30MG CAPSULE (CYMBALTA) PO SCH (08:36)
[2022-08-31 08:37] VITALS: BP 144/83
[2022-08-31] MEDS: cloNIDine 0.2 MG TAB PO SCH (08:37)
[2022-08-31] MEDS: PANTOPRAZOLE 40MG TAB (PROTONIX) PO SCH (08:37)
[2022-08-31] MEDS ORDERED: ABIL1TAB11 PO (13:31)
[2022-08-31] MEDS ORDERED: PRAZ5CAP PO (13:31)
[2022-08-31] MEDS ORDERED: CHLOR25TA PO (13:31)
[2022-08-31] MEDS ORDERED: BUSP10TA PO (13:31)
[2022-08-31] MEDS ORDERED: ABIL1INJ2 IM (13:31)
== END 2022-08-31 14:45 | disposition home or self-care (01) | DRG 882 ==
LOC: M PSY 14:40
PROVIDERS: ADMIT Student in an Organized Health Care Education/Training Program; ATTEND Student in an Organized Health Care Education/Training Program
PROC: 2W3EX1Z Immobilization of Right Hand using Splint (ICD-10-PCS; principal; 2022-08-11)
DX: F43.10 Post-traumatic stress disorder, unspecified (principal); I82.611 Acute embolism and thrombosis of superficial veins of right upper extremity; F60.89 Other specific personality disorders; F32.A Depression, unspecified; F43.21 Adjustment disorder with depressed mood; Z91.82 Personal history of military deployment; Z91.51 Personal history of suicidal behavior; Z91.52 Personal history of nonsuicidal self-harm; Z79.899 Other long term (current) drug therapy; Z78.1 Physical restraint status; S62.354A Nondisplaced fracture of shaft of fourth metacarpal bone, right hand, initial encounter for closed fracture; X58.XXXA Exposure to other specified factors, initial encounter; Y92.9 Unspecified place or not applicable